=== PATIENT | female | born 1950 | race African-American/Black ===

== ENCOUNTER → 2017-06-18 | Outpatient (CLI) | payer OTHER, MEDICAID ==
--- NOTE | 2017-06-18 10:55 | RAD ---
HISTORY: Neck pain with radiculopathy Study: Four views of the cervical spine Comparison: None Findings: The cervical vertebral body heights are relatively maintained. No evidence of acute displaced fractur e or significant subluxation is identified. Mild degenerate facet changes are seen throughout the cer vical spine. The prevertebral soft tissues are grossly unremarkable. The odontoid is partially obscur ed. If symptoms persist follow-up MRI may be performed for further evaluation. Calcifications within the soft tissues of the right neck may be vascular in nature. Correlation with carotid ultrasound may be helpful. IMPRESSION: 1. Mild degenerative changes as noted above. Reported By:
--- NOTE | 2017-06-18 11:04 | RAD ---
HISTORY: Back pain Study: Two views of the thoracic spine Comparison: None Findings: Images demonstrate 12 rib-bearing thoracic vertebral bodies. The thoracic vertebral body heights are relatively maintained. No evidence of acute displaced fracture or significant subluxation is identifi ed. Degenerate facet changes are seen throughout the thoracic spine. Mild multilevel intervertebral d isc space narrowing is noted. Multilevel osteophytosis is noted as well. There are suspected surgical clips projecting over the right upper quadrant of the abdomen. If symptoms persist correlation with MRI may helpful. IMPRESSION: 1. Degenerative changes as noted above. Reported By:
--- NOTE | 2017-06-18 11:05 | RAD ---
HISTORY: Low back pain with radiculopathy Study: Three views of the lumbar spine Comparison: None Findings: Images demonstrate 5 [id number] lumbar vertebral bodies. The lumbar vertebral body heights are r elatively maintained. Degenerate facet changes are seen throughout the lumbar spine. Intervertebral d isc space narrowing is noted at L4/L5 and L5/S1. Grade 1 anterolisthesis of L4 on L5 is demonstrated. Minimal osteophytosis is also noted. Atherosclerotic changes are seen within the visualized aorta. S urgical clips project over the right upper quadrant the abdomen. IMPRESSION: 1. Degenerative changes as noted above. Reported By:
== END | disposition home or self-care (01) | DRG 552 ==
LOC: RAD 09:31
PROVIDERS: ATTEND Psychiatry & Neurology Neurology
DX: M54.17 Radiculopathy, lumbosacral region (principal); M54.2 Cervicalgia; M51.37 Other intervertebral disc degeneration, lumbosacral region; M51.34 Other intervertebral disc degeneration, thoracic region
CPT/HCPCS: 72040; 72072; 72100

== ENCOUNTER → 2017-07-02 | Outpatient (CLI) | payer OTHER, MEDICAID ==
--- NOTE | 2017-07-02 22:12 | VAS ---
HISTORY: Carotid calcifications on cervical spine x-rays. Study: Bilateral carotid arterial Doppler ultrasound. Comparison: Cervical spine radiograph dated 06/18/2017. Technique: Multiple shaikh scale and color flow Doppler images of the right and left carotid arterial s ystem were obtained. The vertebral arterial system was evaluated as well. Findings: Nonocclusive color flow Doppler is seen throughout the right and left carotid arterial system. The p eak systolic velocity of the internal carotid artery on the right is 76 centimeter/second. The peak s ystolic velocity of the internal carotid artery on the left is 112 centimeter/second. There is athero sclerotic plaque of the internal carotid artery the right which corresponds to the calcifications not ed on the comparison cervical spine radiographs. No hemodynamically significant stenosis is seen base d on velocity criteria. The right and left vertebral arteries demonstrate antegrade flow. IMPRESSION: There is atherosclerotic plaque of the carotid bulb region on the right with mild, less than 50% sten osis of the internal carotid artery bilaterally. Reported By:
== END | disposition home or self-care (01) | DRG 556 ==
LOC: RAD 09:58
PROVIDERS: ATTEND Psychiatry & Neurology Neurology
DX: M79.89 Other specified soft tissue disorders (principal); I65.23 Occlusion and stenosis of bilateral carotid arteries
CPT/HCPCS: 93880